=== PATIENT | female | born 1950 | race Caucasian/White ===

== ENCOUNTER 2017-02-11 12:07 | Emergency (ER) | payer OTHER ==
[2017-02-11 12:15] VITALS: BP 154/84; PULSE 82; TEMP 97.6; BMI 22.6
--- NOTE | 2017-02-11 13:02 | PDOC ---
*Physical Exam - Vital Signs Last Vital Signs Temp Pulse Resp BP Pulse Ox 97.6 F 82 18 154/84 100 02/11/17 12:11 02/11/17 12:11 02/11/17 12:11 02/11/17 12:11 02/11/17 12:11 - Physical Exam Comments: 02/11/17 13:01 MIDLEVEL NOTE Pt seen by Midlevel Provider under my direct supervision. Pt interviewed and examined. Ancillary studies reviewed. I agree with plan as outlined by Midlevel Provider. Laboratory Results - last 24 hr 02/11/17 02/11/17 02/11/17 14:02 14:02 14:02 WBC 4.5 RBC 4.57 Hgb 12.4 Hct 38.8 MCV 84.9 MCHC 32.1 RDW 13.5 Plt Count 160 MPV 10.7 D Neutrophils % 61.0 D Lymphocytes % 27.5 D Monocytes % 8.4 Eosinophils % 2.6 Basophils % 0.5 Sodium 142 Potassium 3.8 Chloride 104 Carbon Dioxide 28 Anion Gap 10 BUN 19 H Creatinine 0.5 L D Creat Clearance w eGFR > 60 Random Glucose 89 D Calcium 8.6 Total Bilirubin 0.4 D AST 19 ALT 27 D Alkaline Phosphatase 68 Total Protein 7.0 Albumin 3.9 Urine Color Straw Urine Appearance Clear Urine pH 6.0 Ur Specific [place] 1.010 Urine Protein Negative Urine Glucose (UA) Negative Urine Ketones Negative Urine Blood Negative Urine Nitrite Negative Urine Bilirubin Negative Urine Urobilinogen Negative Ur Leukocyte Esterase Negative 02/11/17 17:04 CT scan of the abdomen and pelvis-[facility] ED Treatment Course - LABORATORY CBC & Chemistry Diagram: 02/11/17 14:02 02/11/17 14:02 *DC/Admit/Observation/Transfer Diagnosis at time of Disposition: Lower abdominal pain - Discharge Dispostion Disposition: HOME Condition at time of disposition: Good - Prescriptions Prescriptions: Cephalexin Monohydrate [Keflex -] 500 mg PO BID #10 capsule - Referrals Referrals: Surinder Bello [Primary Care Provider] - - Patient Instructions Printed Discharge Instructions: DI for Abdominal Pain-Adult Additional Instructions: Your urine, blood work and CAT scan were negative for acute findings. Drink plenty of fluids and eat well-balanced meals today and follow-up with your PCP as needed.
[2017-02-11] MEDS ORDERED: SODIUM CHLORIDE 1,000 ML IV STA (13:13)
[2017-02-11] MEDS ORDERED: ONDANSETRON 4 MG/2 ML VIAL IVPUSH ONE (13:13)
[2017-02-11] MEDS ORDERED: ONDANSETRON 4 MG/2 ML VIAL ONE (13:42)
--- NOTE | 2017-02-11 14:08 | PDOC ---
History of Present Illness - General Chief Complaint: Pain Stated Complaint: PAIN, NAUSEA Time Seen by Provider: 02/11/17 12:48 History Source: Patient Exam Limitations: No Limitations - History of Present Illness Travel History: No Initial Comments: 02/11/17 13:04 66-year-old female presents the ED with complaints of one week of right lower quadrant pain now associated nausea without vomiting fever, chills, diarrhea or dysuria. Patient denies history of GI disorders, recent UTI, constipation, or recent illness. Patient did not see her PCP Dr. Bello and decided come to the ER for further evaluation. Timing/Duration: reports: constant Quality: reports: mild, moderate, cramping Abdominal Pain Onset Location: reports: RLQ Pain Radiation: reports: periumbilical Activities at Onset: reports: none Aggravating Factors: improves with: None Alleviating Factors: improves with: None Past History - Past Medical History Allergies/Adverse Reactions: Allergies Allergy/AdvReac Type Severity Reaction Status Date / Time No Known Drug Allergies Allergy Verified 02/11/17 12:10 Home Medications: Ambulatory Orders Aspirin [ASA -] 81 mg PO DAILY 05/28/12 Levothyroxine [Synthroid -] 25 mcg PO DAILY 05/28/12 Simvastatin 20 mg PO DAILY 05/28/12 Zolpidem Tartrate 5 mg PO HS 05/28/12 Olmesartan Medoxomil [Benicar (Nf)] 20 mg PO DAILY 02/11/17 Anemia: No Asthma: No Cancer: No Cardiac Disorders: No CVA: No COPD: No CHF: No Dementia: No Diabetes: No GI Disorders: No Disorders: No HTN: Yes Hypercholesterolemia: Yes Liver Disease: No Seizures: No Thyroid Disease: Yes (HYPOTHYROIDISM) - Surgical History Abdominal Surgery: Yes (ovaries, fibroids) Appendectomy: No Cardiac Surgery: No Cholecystectomy: No Lung Surgery: Yes Neurologic Surgery: No Orthopedic Surgery: No - Psycho/Social/Smoking Cessation Hx Anxiety: No Suicidal Ideation: No Smoking Status: Yes Smoking History: Never smoked Have you smoked in the past 12 months: No Number of Cigarettes Smoked Daily: 0 If you are a former smoker, when did you quit?: 2003 Information on smoking cessation initiated: No Hx Alcohol Use: No Drug/Substance Use Hx: No Substance Use Type: None Hx Substance Use Treatment: No Patient Lives Alone: No Lives with/in: spouse/SO Review of Systems - Review of Systems Able to Perform ROS?: Yes Constitutional: No: Symptoms Reported HEENTM: No: Symptoms Reported Respiratory: No: Symptoms reported Cardiac (ROS): No: Symptoms Reported ABD/GI: Yes: Nausea, Vomiting (once today), Abdominal cramping. No: Diarrhea : No: Symptoms Reported Musculoskeletal: No: Symptoms Reported Integumentary: No: Symptoms Reported Neurological: No: Symptoms reported Endocrine: No: Symptoms Reported *Physical Exam - Vital Signs Last Vital Signs Temp Pulse Resp BP Pulse Ox 97.6 F 82 18 154/84 100 02/11/17 12:11 02/11/17 12:11 02/11/17 12:11 02/11/17 12:11 02/11/17 12:11 - Physical Exam General Appearance: Yes: Nourished, Appropriately Dressed. No: Apparent Distress HEENT: positive: Pharynx Normal. negative: Muffled/Hoarse voice Neck: positive: Normal Thyroid, Supple Respiratory/Chest: positive: Lungs Clear, Normal Breath Sounds. negative: Respiratory Distress, Accessory Muscle Use Cardiovascular: positive: Regular Rhythm, Regular Rate. negative: Murmur Gastrointestinal/Abdominal: positive: Soft, Tenderness (right lower quadrant lower periumbilical) Musculoskeletal: negative: CVA Tenderness Extremity: positive: Normal Capillary Refill Integumentary: positive: Normal Color, Warm, Moist Neurologic: positive: Motor Strength 5/5 (ambulatory) ED Treatment Course - LABORATORY CBC & Chemistry Diagram: 02/11/17 14:02 02/11/17 14:02 - RADIOLOGY Radiology Studies Ordered: Category Date Time Status ABDOMEN & PELVIS CT W/O CONTR [CT] Stat CT Scan 02/11/17 13:12 Ordered - Medications Given in the ED: ED Medications Discontinued Medications Generic Name Dose Route Start Last Admin Trade Name Freq PRN Reason Stop Dose Admin Ondansetron HCl 4 mg 02/11/17 13:13 02/11/17 14:01 Zofran Injection IVPUSH 02/11/17 13:14 4 mg ONCE ONE Administration Medical Decision Making - Medical Decision Making 02/11/17 14:07 Patient with right lower quadrant pain for the past week now associated nausea and vomiting since yesterday. Patient concerning for UTI versus infectious process. Patient ordered for labs, urine and abdominal CT with by mouth contrast. Patient also ordered for Zofran and IV fluids secondary to nausea and vomiting and inability to tolerate solids today. 02/11/17 17:04 Laboratory Tests 02/11/17 02/11/17 02/11/17 14:02 14:02 14:02 WBC 4.5 Hgb 12.4 Hct 38.8 Plt Count 160 Neutrophils % 61.0 D Sodium 142 Potassium 3.8 Chloride 104 Carbon Dioxide 28 Anion Gap 10 BUN 19 H Creatinine 0.5 L D Random Glucose 89 D Calcium 8.6 Total Bilirubin 0.4 D AST 19 ALT 27 D Alkaline Phosphatase 68 Total Protein 7.0 Albumin 3.9 Urine Ketones Negative Urine Nitrite Negative Ur Leukocyte Esterase Negative CT shows no discrete abnormalities no acute pathology is noted. Patient be discharged home and told to follow up with her PCP *DC/Admit/Observation/Transfer Diagnosis at time of Disposition: Lower abdominal pain - Discharge Dispostion Disposition: HOME Condition at time of disposition: Good - Referrals Referrals: Surinder Bello [Primary Care Provider] - - Patient Instructions Printed Discharge Instructions: DI for Abdominal Pain-Adult Additional Instructions: Your urine, blood work and CAT scan were negative for acute findings. Drink plenty of fluids and eat well-balanced meals today and follow-up with your PCP as needed.
[2017-02-11 14:11] LABS: BASOPHIL 0.5 % (0-2.0); EOSINOPHIL 2.6 % (0-4.5); MCH 27.2 pg (25.7-33.7); MCHC 32.1 g/dl (32.0-36.0); MEAN CELL VOLUME 84.9 fl (80-96); MEAN PLT VOLUME 10.7 fl (7.5-11.1); PLATELET COUNT 160 K/MM3 (134-434); RDW 13.5 % (11.6-15.6); WHITE BLOOD COUNT 4.5 K/mm3 (4.0-10.0)
[2017-02-11 14:14] LABS: URINE APPEARANCE CLEAR; URINE BILIRUBIN NEGATIVE (NEGATIVE); URINE BLOOD NEGATIVE (NEGATIVE); URINE COLOR STRAW; URINE GLUCOSE (UA) NEGATIVE (NEGATIVE); URINE KETONE NEGATIVE (NEGATIVE); URINE LEUK ESTERASE NEGATIVE (NEGATIVE); URINE NITRITE NEGATIVE (NEGATIVE); URINE PROTEIN NEGATIVE (NEGATIVE); URINE UROBILINOGEN NEGATIVE E.U./dl (0.2-1.0)
[2017-02-11 14:42] LABS: ALBUMIN 3.9 g/dl (3.4-5.0); ALK PHOS 68 U/L (45-117); ANION GAP 10 (8-16); BILIRUBIN,TOTAL 0.4 mg/dL (0.2-1.0); CALCIUM 8.6 mg/dL (8.5-10.1); CO2 28 mmol/L (21-32); CREATININE 0.5 mg/dL (0.55-1.02); GLUCOSE,RANDOM 89 mg/dL (74-106); SGOT/AST 19 U/L (15-37); SGPT/ALT 27 U/L (12-78)
--- NOTE | 2017-02-13 11:37 | PDOC ---
Patient Follow-up (Call Back) - Post ED Follow - Up Condition at time of discharge: Good Disposition at time of original discharge: HOME Reason for Call Back: Abnwl. Microbiology Signs/Symptoms Improved: Yes - Disposition Rx Needed: Yes (Keflex sent to pharmacy)
== END 2017-02-11 17:29 | disposition home or self-care (01) ==
LOC: JER 12:07
PROC: 3E033GC Introduction of Other Therapeutic Substance into Peripheral Vein, Percutaneous Approach (ICD-10-PCS; principal; 2017-02-11)
DX: R10.31 Right lower quadrant pain (principal); I10 Essential (primary) hypertension; E78.00 Pure hypercholesterolemia, unspecified; E03.9 Hypothyroidism, unspecified
CPT/HCPCS: 36415; 74176-TC; 80053; 81003; 85025; 87086; 87186; 96374; 99283-25

== ENCOUNTER 2019-11-17 10:16 | Emergency (ER) | payer OTHER ==
[2019-11-17 10:27] VITALS: BMI 24.2
--- NOTE | 2019-11-17 10:47 | PDOC ---
History of Present Illness - General Chief Complaint: Rectal Bleed Stated Complaint: ABD PAIN/NAUSEOUS/DIARRHEA Time Seen by Provider: 11/17/19 10:45 History Source: Patient Exam Limitations: No Limitations - History of Present Illness Initial Comments: 11/17/19 10:46 PCP: Randolph Bello HPI: 69yo F PMH fibroids and related hysterectomy, hypertension, hypercholesterolemia, hypothyroidism, presenting with 1 week of abdominal pain and 2x blood in the stool this morning. Patient reports 1 week of worsening, constant, diffuse, abdominal pain with associated nausea. Now with bloody stool - unable to describe if mixed or coating the stool. Never had anything like this before. Denies travel, different or unique foods, weight loss, fatigue, recent illnesses. All: NKDA Meds: Per chart PMH: Denies liver issues, GI isssues, arrhythmias PSH: Per chart SHx: Remote smoker Past History - Past Medical History Allergies/Adverse Reactions: Allergies Allergy/AdvReac Type Severity Reaction Status Date / Time No Known Drug Allergies Allergy Verified 11/17/19 10:27 Home Medications: Ambulatory Orders Aspirin [ASA -] 81 mg PO DAILY 05/28/12 Levothyroxine [Synthroid -] 25 mcg PO DAILY 05/28/12 Simvastatin 20 mg PO DAILY 05/28/12 Olmesartan Medoxomil [Benicar (Nf)] 20 mg PO DAILY 02/11/17 Ciprofloxacin [Cipro -] 500 mg PO BID 7 Days #14 tablet 11/17/19 metroNIDAZOLE [Metronidazole] 500 mg PO TID 7 Days #21 tablet 11/17/19 Anemia: No Asthma: No Cancer: No Cardiac Disorders: No CVA: No COPD: No CHF: No Dementia: No Diabetes: No GI Disorders: No Disorders: No HTN: Yes Hypercholesterolemia: Yes Liver Disease: No Seizures: No Thyroid Disease: Yes (HYPOTHYROIDISM) - Surgical History Abdominal Surgery: Yes (ovaries, fibroids) Appendectomy: No Cardiac Surgery: No Cholecystectomy: No Lung Surgery: Yes Neurologic Surgery: No Orthopedic Surgery: No - Psycho Social/Smoking Cessation Hx Smoking Status: Yes Smoking History: Never smoked Have you smoked in the past 12 months: No Number of Cigarettes Smoked Daily: 0 If you are a former smoker, when did you quit?: 2003 Hx Alcohol Use: No Drug/Substance Use Hx: No Substance Use Type: None Hx Substance Use Treatment: No Review of Systems - Review of Systems Able to Perform ROS?: Yes Is the patient limited Sami proficient: Yes Constitutional: Yes: Fever, Weight Stable. No: Chills, Unintentional Wgt. Loss HEENTM: No: Recent change in vision, Nose Congestion, Throat Pain Respiratory: No: Cough, Shortness of Breath, Wheezing Cardiac (ROS): No: Chest Pain, Edema, Irregular Heart Rate, Palpitations, Chest Tightness ABD/GI: Yes: Rectal Bleeding. No: Constipated, Diarrhea : No: Dysuria, Discharge, Frequency Musculoskeletal: No: Muscle Pain, Muscle Weakness Integumentary: No: Bruising, Pallor, Rash Neurological: No: Headache, Numbness, Tingling, Weakness Psychiatric: No: Stressors, Change in Appetite Endocrine: No: Increased Urine, Unexplained Weight Gain, Change in Weight Hematologic/Lymphatic: No: Anemia, Blood Clots, Easy Bleeding All Other Systems: Reviewed and Negative *Physical Exam - Vital Signs Last Vital Signs Temp Pulse Resp BP Pulse Ox 97.3 F L 58 L 16 149/65 100 11/17/19 10:24 11/17/19 10:24 11/17/19 10:24 11/17/19 10:24 11/17/19 10:24 - Physical Exam 11/17/19 11:40 Vitals reviewed, AFVSS with HTN GEN: Elderly woman, NAD, comfortable. AAOx3. HEENT: NC/AT, EOMI, PERRLA. No facial asymmetry. Moist mucous membranes. Normal voice. CV: S1/S2, RRR, no m/r/g appreciated. LUNG: CTAB, no wheezes, crackles, rales, rhonchi. GI: Soft, diffusely tender, nondistended, no overlying rash, +BS, no guarding, no rebound. No masses. RECTAL: Normal external morphology, no fissures or hemorrhoids, good rectal tone , no internal hemorrhoids palpated, no blood appreciated, brown stool in vault, no masses EXTREMITIES: 2+ distal pulses. No LE edema. SKIN: Warm, dry, no rashes appreciated. PSYCH: Normal mood and affect. NEURO: Moving all extremities well. CN grossly intact. ED Treatment Course - LABORATORY CBC & Chemistry Diagram: 11/17/19 11:30 11/17/19 11:30 Medical Decision Making - Medical Decision Making 11/17/19 11:43 69yo F PMH fibroids and related hysterectomy, hypertension, hypercholesterolemia , hypothyroidism, presenting with 1 week of abdominal pain and 2x blood in the stool this morning. Exam with stable vitals, normal rectal exam, diffuse abdominal tenderness. DDX includes but not limited to: diverticulitis / diverticulosis, infectious colitis, mesenteric ischemia - CBC, CMP, T&S, Lactate, FOBT, Coags, VBG - EKG - CTAP with contrast - 1g Ofirmev - 1L IVF, NS 11/17/19 11:52 - No leukocytosis - EKBPM, NSR, normal axis, normal intervals (417 QTc), no ischemic morphologies 11/17/19 16:01 - Labs unremarkable, no leukocytosis, normal electrolytes, normal LFTs, FOBT Negative - CT with left sided colitis, ordered for metronidazole / ciprofloxacin, will continue for 7 days - Pt now asymptomatic, requesting to go home for dinner Dispo: Discharge Discharge - Discharge Information Problems reviewed: Yes Clinical Impression/Diagnosis: Lower abdominal pain, Colitis Condition: Stable Disposition: HOME - Admission No - Additional Discharge Information Prescriptions: Ciprofloxacin [Cipro -] 500 mg PO BID 7 Days #14 tablet metroNIDAZOLE [Metronidazole] 500 mg PO TID 7 Days #21 tablet - Follow up/Referral Referrals: Surinder Bello [Primary Care Provider] - - Patient Discharge Instructions Patient Printed Discharge Instructions: DI for Abdominal Pain-Adult, DI for Colitis Additional Instructions: You were seen and evaluated in the [facility] and found to have inflammation of your bowels (colitis) Please picker/puller your antibiotics from your pharmacy. Take these as directed for the full course. As discussed - if you begin to experience pain behind your heal - discontinue the ciprofloxacin immediately. Please follow up with your primary care doctor within the next week for continued care. Return to the ED for any new or concerning symptoms which may include but are not limited to: weakness, additional GI bleeding, pain not responding to over the counter pain medication, nausea and vomiting that prevents you from drinking water or taking your medications. - Post Discharge Activity
[2019-11-17] MEDS ORDERED: ACETAMINOPHEN 1000 MG/100 ML VIAL (NON FORMULARY) IVPB ONE (11:36)
[2019-11-17 11:45] LABS: BASO % 0.2 % (0-2.0); EOS % 0.2 % (0-4.5); HEMATOCRIT 43.2 % (32.4-45.2); HEMOGLOBIN 14.1 GM/dL (10.7-15.3); LYMPH % 10.8 % (8-40); MCHC 32.6 g/dl (32.0-36.0); MEAN CELL VOLUME 85.9 fl (80-96); MEAN PLT VOLUME 11.4 fl (7.5-11.1); MONO % 3.4 % (3.8-10.2); NEUT % 85.4 % (42.8-82.8); PLATELET COUNT 199 K/MM3 (134-434); RBC 5.03 M/mm3 (3.60-5.2); RDW 12.9 % (11.6-15.6); WHITE BLOOD COUNT 7.3 K/mm3 (4.0-10.0)
[2019-11-17] MEDS ORDERED: SODIUM CHLORIDE 1,000 ML IV SCH ×2 (11:45→12:01)
[2019-11-17 11:48] LABS: VENOUS PC02 49.1 mmHg (38-52); VENOUS PH 7.35 (7.31-7.41)
[2019-11-17 11:56] LABS: VENOUS PO2 < 49 mmHg (28-48)
--- NOTE | 2019-11-17 11:57 | PDOC ---
Documentation entered by Jia Farley SCRIBE, acting as scribe for Sharon Espinosa MD. Sharon Espinosa MD: This documentation has been prepared by the Miguelito valverde Brenda, SCRIBE, under my direction and personally reviewed by me in its entirety. I confirm that the documentation accurately reflects all work, treatment, procedures, and medical decision making performed by me. Attending Attestation - Resident Resident Name: Ludin Marquez - ED Attending Attestation I have performed the following: I have examined & evaluated the patient, The case was reviewed & discussed with the resident, I agree w/resident's findings & plan, Exceptions are as noted - HPI HPI: 11/17/19 11:05 The patient is a year old female, with a significant PMH of fibroids and related hysterectomy, hypertension, hypercholesterolemia, hypothyroidism, who presents to the emergency department with 1 week of worsening and constant abdominal pain, which she describes as diffuse throughout. Patient also reports 2 episodes of blood in stool this morning. The patient denies chest pain, shortness of breath, headache and dizziness. Denies fever, chills, nausea, vomiting, diarrhea and constipation. Denies any urinary symptoms. Allergies: NKA Past surgical history: unknown lung surgery, hysterectomy Social history: Former smoker PCP: Vivek Bello - Physicial Exam PE: 11/17/19 11:52 GENERAL: The patient is in no acute distress, pt appears uncomfortable. ENT: Ears normal, nares patent, oropharynx clear without exudates. Moist mucous membranes. NECK: Normal range of motion, supple LUNGS: Breath sounds equal, clear to auscultation bilaterally. No wheezes, and no crackles. HEART:Regular rate and rhythm, normal S1 and S2 without murmur, rub or gallop. ABDOMEN: Soft, non distended, tender to palpation diffusely, no involuntary guarding, no rebound RECTAL: per dr. marquez EXTREMITIES: Normal range of motion, no edema. NEUROLOGICAL: Cranial nerves II through XII grossly intact. Normal speech. No focal neurological deficits. SKIN: Warm, Dry, normal turgor, no rashes or lesions noted. - Medical Decision Making 11/17/19 11:52 69-year-old female presenting to the emergency department with abdominal pain. VS: Selected Entries 11/17/19 10:24 Pulse Rate 58 L Respiratory 16 Rate Blood Pressure 149/65 O2 Sat by Pulse 100 Oximetry (%) Exam: As noted in Physical Exam section. DDX: GI perforation, appendicitis wwo rupture, diverticulitis wwo rupture or abscess, pancreatitis wwo abscess/pseudocyst, biliary colic, cholecystitis, neoplasm, medications, ERCP complication, ischemic colitis, bowel obstruction, W/U ordered: CBCD CMP Mg Phos Lipase Lactate BCx Troponin CK CKMB LDH EKG CXR CT A/P TX ordered: IVF Morphine EKG: Twelve-lead EKG was performed and reviewed by me. There is normal sinus rhythm with a bradycardic rate of 54 bpm. The axis is normal. The intervals are normal. There are no ST or T wave abnormalities. Impression: Normal twelve-lead EKG 11/17/19 11:54 11/17/19 13:28 Laboratory Tests 11/17/19 11/17/19 11/17/19 11:25 11:30 11:30 WBC 7.3 Hgb 14.1 Hct 43.2 Plt Count 199 D INR 0.97 Lactic Acid Stool Occult Blood Negative 11/17/19 11:30 WBC Hgb Hct Plt Count INR Lactic Acid 1.[address] demonstrates colitis No leukocytosis, lactate nml, guiaic negative Will d/c to home with po abx Follow up with PMD within 1 week Return to the ER for any other concerns or complaints clinical impression: colitis, initial presentation
[2019-11-17] MEDS ORDERED: ACETAMINOPHEN INJECTION 100 ML IVPB ONE (12:00)
[2019-11-17 12:04] LABS: INR 0.97 (0.83-1.09); PROTHROMBIN TIME (PATIENT) 11.5 SEC (9.7-13.0)
--- NOTE | 2019-11-17 13:19 | EKG ---
Test Reason : Blood Pressure : / mmHG Vent. Rate : 054 BPM Atrial Rate : 054 BPM P-R Int : 154 ms QRS Dur : 098 ms QT Int : 440 ms P-R-T Axes : 062 -13 045 degrees QTc Int : 417 ms SINUS BRADYCARDIA OTHERWISE NORMAL ECG WHEN COMPARED WITH ECG OF 21-SEP-2012 22:47, NO SIGNIFICANT CHANGE WAS FOUND Confirmed by MARIO JOINER MD ([id number]) on 11/17/2019 1:19:14 PM Referred By: Confirmed By:MARIO JOINER MD
[2019-11-17 13:46] LABS: ALBUMIN 4.3 g/dl (3.4-5.0); BILIRUBIN,TOTAL 0.4 mg/dL (0.2-1); BLOOD UREA NITROGEN 25.2 mg/dL (7-18); CALCIUM 9.5 mg/dL (8.5-10.1); CREATININE 0.6 mg/dL (0.55-1.3); POTASSIUM 4.5 mmol/L (3.5-5.1); TOT PROT 7.8 g/dl (6.4-8.2)
[2019-11-17] MEDS ORDERED: CIPROFLOXACIN 500 MG TABLET (RESTRICTED TO ID) PO ONE (15:43)
[2019-11-17] MEDS ORDERED: metroNIDAZOLE 500 MG TABLET PO ONE (15:58)
[2019-11-17] MEDS ORDERED: metroNIDAZOLE 250 MG TABLET ONE (16:11)
[2019-11-17 16:25] VITALS: BP 138/69; PULSE 68; TEMP 98.3
== END 2019-11-17 16:32 | disposition home or self-care (01) ==
LOC: JER 10:16
PROC: 3E0337Z Introduction of Electrolytic and Water Balance Substance into Peripheral Vein, Percutaneous Approach (ICD-10-PCS; principal; 2019-11-17)
PROC: 3E033NZ Introduction of Analgesics, Hypnotics, Sedatives into Peripheral Vein, Percutaneous Approach (ICD-10-PCS; 2019-11-17)
DX: K52.9 Noninfective gastroenteritis and colitis, unspecified (principal); I10 Essential (primary) hypertension; E03.9 Hypothyroidism, unspecified; E78.00 Pure hypercholesterolemia, unspecified; Z86.2 Personal history of diseases of the blood and blood-forming organs and certain disorders involving the immune mechanism; Z90.710 Acquired absence of both cervix and uterus
CPT/HCPCS: 36415; 74177-TC; 80053; 82272; 82803; 83605; 85025; 85610; 86850; 86900; 86901; 93005; 93010; 96361; 96374; 99282-25; J0131; J7030; Q9967

== ENCOUNTER 2024-08-07 13:25 | Emergency (ER) | payer OTHER ==
[2024-08-07 13:35] VITALS: BMI 22.3
[2024-08-07 15:25] LABS: BASO % 0.3 % (0-2.0); EOS % 0.9 % (0-4.5); HEMATOCRIT 41.7 % (32.4-45.2); HEMOGLOBIN 13.8 GM/dL (10.7-15.3); LYMPH % 16.3 % (8-40); MCH 27.8 pg (25.7-33.7); MEAN CELL VOLUME 84.2 fl (80-96); MEAN PLT VOLUME 11.3 fl (7.5-11.1); MONO % 7.3 % (3.8-10.2); NEUT % 75.2 % (42.8-82.8); PLATELET COUNT 201 10^3/uL (134-434); RBC 4.95 M/mm3 (3.60-5.2); RDW 12.8 % (11.6-15.6); WHITE BLOOD COUNT 8.3 K/mm3 (4.0-10.0)
[2024-08-07 15:33] LABS: INR 0.97 (0.83-1.09); PROTHROMBIN TIME (PATIENT) 11.2 SEC (9.7-13.0)
[2024-08-07 15:36] LABS: ACTIVATED PTT 31.8 SECONDS (25.2-36.5)
[2024-08-07 15:53] LABS: POTASSIUM 4.3 mmol/L (3.5-5.1)
[2024-08-07 15:55] LABS: ALBUMIN 4.3 g/dl (3.4-5.0); BLOOD UREA NITROGEN 20.3 mg/dL (7-18); CALCIUM 9.9 mg/dL (8.5-10.1); MAGNESIUM 2.6 mg/dL (1.8-2.4)
[2024-08-07 15:59] LABS: CREATININE 0.8 mg/dL (0.55-1.3)
[2024-08-07 16:00] LABS: BILIRUBIN,TOTAL 0.5 mg/dL (0.2-1); TOT PROT 7.8 g/dl (6.4-8.2)
[2024-08-07 19:17] VITALS: BP 122/77; PULSE 79; RESP 19; TEMP 97.8
== END 2024-08-07 19:18 | disposition home or self-care (01) ==
LOC: JER 13:25
DX: R07.89 Other chest pain (principal); R42 Dizziness and giddiness; R11.0 Nausea
CPT/HCPCS: 36415; 71045-TC-FY; 80053; 83735; 84484; 85025; 85610; 85730; 93005; 93010; 99285-25

== ENCOUNTER 2025-05-09 21:27 | Emergency (ER) | payer OTHER ==
[2025-05-09 21:35] VITALS: TEMP 98; BMI 20.4
[2025-05-09] MEDS ORDERED: ACETAMINOPHEN 500 MG TABLET (FP) PO ONE (21:54)
[2025-05-09 22:30] LABS: ABSOLUTE IMMATURE GRANULOCYTES 0.01 x10^3/uL (0.0-0.031); BASOPHILS # 0.01 x10^3/uL (0.01-0.08); EOSINOPHIL % 2.6 % (0.7-5.8); EOSINOPHILS # 0.12 x10^3/uL (0.04-0.36); HEMATOCRIT 38.1 % (34.1-44.9); HEMOGLOBIN 12.4 g/dL (11.2-15.7); MCHC 32.5 g/dl (32.2-35.5); MEAN PLT VOLUME 12.3 fl (9.4-12.3); MONOCYTE # 0.53 x10^3/uL (0.24-0.86); MONOCYTE % 11.6 % (4.7-12.5); PLATELET COUNT 222 x10^3/uL (182-369)
[2025-05-09 22:50] LABS: POTASSIUM 3.8 mmol/L (3.5-5.1)
[2025-05-09 22:52] LABS: CALCIUM 9.9 mg/dL (8.5-10.1)
[2025-05-09 22:53] LABS: ALBUMIN 4.1 g/dl (3.4-5.0); BLOOD UREA NITROGEN 12.6 mg/dL (7-18)
[2025-05-09 22:56] LABS: CREATININE 0.6 mg/dL (0.55-1.3)
[2025-05-09 22:57] LABS: BILIRUBIN,TOTAL 0.6 mg/dL (0.2-1)
[2025-05-09 23:45] LABS: PH,URINE 7.5 (5.0-8.0); URINE APPEARANCE CLEAR; URINE BILIRUBIN NEGATIVE (NEGATIVE); URINE COLOR YELLOW; URINE GLUCOSE (UA) NEGATIVE (NEGATIVE); URINE KETONE NEGATIVE (NEGATIVE); URINE LEUK ESTERASE NEGATIVE (NEGATIVE); URINE NITRITE NEGATIVE (NEGATIVE); URINE PROTEIN NEGATIVE (NEGATIVE); URINE UROBILINOGEN 0.2 mg/dL (0.2-1.0)
[2025-05-09 23:48] LABS: HCV DIAGNOSTIC IN-HOUSE W/RFLX NON-REACTIVE (NONREACTIVE)
[2025-05-10 00:28] VITALS: BP 137/71; PULSE 58; RESP 17
[2025-05-11 23:29] LABS: HIV INTERPRETATION NEGATIVE (NEGATIVE)
== END 2025-05-10 00:17 | disposition home or self-care (01) ==
LOC: JER 21:27
DX: R30.0 Dysuria (principal); R10.30 Lower abdominal pain, unspecified; R34 Anuria and oliguria
CPT/HCPCS: 36415; 74177-TC; 80053; 81003; 85025; 86803; 87086; 87389; 99285-25; Q9967